=== PATIENT | female | born 1975 | race Caucasian/White ===

== ENCOUNTER → 2022-01-02 | Day surgery (SDC) | payer OTHER | LOC: SDC 14:03 | PROVIDERS: ATTEND Internal Medicine Gastroenterology | DX: K21.9 Gastro-esophageal reflux disease without esophagitis (principal); R05.3 Chronic cough; Z88.8 Allergy status to other drugs, medicaments and biological substances | CPT/HCPCS: 91034 ==

== ENCOUNTER 2022-10-04 15:00 | Outpatient (CLI) | payer OTHER | END 2022-10-04 15:01 | disposition home or self-care (01) | LOC: BICMAMMO 15:00 | PROVIDERS: ATTEND Family Medicine | DX: N63.11 Unspecified lump in the right breast, upper outer quadrant (principal) | CPT/HCPCS: 77066; G0279 ==

== ENCOUNTER 2025-04-16 08:53 | Outpatient (CLI) | payer OTHER | END 2025-04-16 08:54 | disposition home or self-care (01) | LOC: RAD 08:53 | PROVIDERS: ATTEND Internal Medicine | DX: R06.00 Dyspnea, unspecified (principal) | CPT/HCPCS: 71046 ==